=== PATIENT | female | born 2005 | race Caucasian/White ===

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

== ENCOUNTER 2023-09-26 08:00 | Outpatient (CLI) | payer MEDICAID ==
[2023-09-26 16:12] LABS: BILIRUBIN,URINE NEGATIVE (NEGATIVE); GLUCOSE, URINE (UA) NEGATIVE (NEGATIVE); KETONES,URINE (UA) NEGATIVE (NEGATIVE); LEUKOCYTE ESTERASE, URINE NEGATIVE (NEGATIVE); NITRITE,URINE NEGATIVE (NEGATIVE); OCCULT BLOOD,URINE MODERATE (NEGATIVE); PH,URINE 7.5 PH (5.0-7.5); PROTEIN,URINE NEGATIVE (NEGATIVE); UROBILINOGEN,URINE 0.2 (NORMAL) E.U./dL (NORMAL)
[2023-09-26 16:13] LABS: CLARITY,URINE HAZY (CLEAR)
[2023-09-26 16:28] LABS: AMORPHOUS SEDIMENT,UR Few /LPF; BACTERIA,URINE Rare /HPF (None Seen); SQUAMOUS EPITHELIAL CELL,UR MANY Squamous (<= Few); WBC,URINE 0-3 /HPF (0-5)
== END 2023-09-26 23:59 | disposition home or self-care (01) ==
LOC: LAB.WC 08:00
PROVIDERS: ATTEND Nurse Practitioner
DX: R10.2 Pelvic and perineal pain (principal)
CPT/HCPCS: 81001; 87086

== ENCOUNTER 2023-10-14 08:00 | Outpatient (CLI) | payer MEDICAID ==
[2023-10-14 15:55] LABS: BILIRUBIN,URINE NEGATIVE (NEGATIVE); GLUCOSE, URINE (UA) NEGATIVE (NEGATIVE); KETONES,URINE (UA) NEGATIVE (NEGATIVE); LEUKOCYTE ESTERASE, URINE NEGATIVE (NEGATIVE); NITRITE,URINE NEGATIVE (NEGATIVE); OCCULT BLOOD,URINE LARGE (NEGATIVE); PROTEIN,URINE NEGATIVE (NEGATIVE); UROBILINOGEN,URINE 0.2 (NORMAL) E.U./dL (NORMAL)
[2023-10-14 16:04] LABS: BACTERIA,URINE Few /HPF (None Seen); CLARITY,URINE CLEAR (CLEAR); MUCUS,URINE Few Strands; SQUAMOUS EPITHELIAL CELL,UR FEW Squamous (<= Few); WBC,URINE 0-3 /HPF (0-5)
== END 2023-10-14 23:59 | disposition home or self-care (01) ==
LOC: LAB.WC 08:00
PROVIDERS: ATTEND Nurse Practitioner
DX: R30.0 Dysuria (principal)
CPT/HCPCS: 81001; 87086

== ENCOUNTER 2024-02-11 08:00 | Outpatient (CLI) | payer MEDICAID ==
[2024-02-11 16:31] LABS: BILIRUBIN,URINE NEGATIVE (NEGATIVE); GLUCOSE, URINE (UA) NEGATIVE (NEGATIVE); KETONES,URINE (UA) NEGATIVE (NEGATIVE); LEUKOCYTE ESTERASE, URINE SMALL (NEGATIVE); NITRITE,URINE NEGATIVE (NEGATIVE); OCCULT BLOOD,URINE NEGATIVE (NEGATIVE); PROTEIN,URINE NEGATIVE (NEGATIVE); UROBILINOGEN,URINE 0.2 (NORMAL) E.U./dL (NORMAL)
[2024-02-11 16:38] LABS: CLARITY,URINE HAZY (CLEAR)
[2024-02-11 17:01] LABS: BACTERIA,URINE Few /HPF (None Seen); RBC,URINE 0-5 /HPF (0-5); SQUAMOUS EPITHELIAL CELL,UR MOD Squamous (<= Few)
== END 2024-02-11 23:59 | disposition home or self-care (01) ==
LOC: LAB.WC 08:00
PROVIDERS: ATTEND Nurse Practitioner
DX: R30.0 Dysuria (principal)
CPT/HCPCS: 81001; 87086

== ENCOUNTER 2024-02-20 08:00 | Outpatient (CLI) | payer MEDICAID ==
[2024-02-20 16:59] LABS: BILIRUBIN,URINE NEGATIVE (NEGATIVE); GLUCOSE, URINE (UA) NEGATIVE (NEGATIVE); KETONES,URINE (UA) NEGATIVE (NEGATIVE); LEUKOCYTE ESTERASE, URINE NEGATIVE (NEGATIVE); NITRITE,URINE NEGATIVE (NEGATIVE); OCCULT BLOOD,URINE LARGE (NEGATIVE); PROTEIN,URINE NEGATIVE (NEGATIVE); UROBILINOGEN,URINE 0.2 (NORMAL) E.U./dL (NORMAL)
[2024-02-20 17:01] LABS: CLARITY,URINE HAZY (CLEAR)
[2024-02-20 17:16] LABS: BACTERIA,URINE Rare /HPF (None Seen); SQUAMOUS EPITHELIAL CELL,UR FEW Squamous (<= Few); WBC,URINE 0-3 /HPF (0-5)
== END 2024-02-20 23:59 | disposition home or self-care (01) ==
LOC: LAB.WC 08:00
PROVIDERS: ATTEND Nurse Practitioner
DX: R30.0 Dysuria (principal)
CPT/HCPCS: 81001; 87086

== ENCOUNTER 2024-03-08 14:15 | Outpatient (CLI) | payer MEDICAID ==
--- NOTE | 2024-03-08 20:15 | Ultrasound Report ---
PROCEDURE: Pelvic Complete INDICATIONS: PELVIC PAIN, PAINFUL URINARY BLADDER SYNDROME TECHNIQUE: Real-time transabdominal scanning was performed of the pelvic organs, with image documentation. Randolph svaginal examination was not performed. COMPARISON: None FINDINGS: Uterus: Uterus is anteverted and normal in size at 8.7 x 3.6 x 4.6 cm. The myometrium is homogeneou s. The endometrium measures 3 mm in combined thickness. IUD is in appropriate position. Ovaries: The right ovary measures 2.8 x 2.3 x 2.7 cm, with a calculated ovarian volume of 9.26 cc. The left ovary measures 3.4 x 2.1 x 2.1 cm, with a calculated ovarian volume of 7.7 cc. Less than 12 follicles in the right ovary and possibly greater than 12 follicles in the left ovary. No adnexal m asses are seen. No cystic lesions measuring greater than 3 cm. Other: No free pelvic fluid. IMPRESSION: Evaluation is limited on transabdominal view. 1.IUD is in appropriate position. 2.Less than 12 follicles in the right ovary and possibly greater than 12 follicles in the left ovary which may be seen in the setting of PCOS. Recommend clinical correlation. Reviewed by: Gee Romero MD on 03/08/2024 8:14 PM PDT Approved by: Gee Romero MD on 03/08/2024 8:14 PM PDT Station ID: [id number]
== END 2024-03-08 14:16 | disposition home or self-care (01) ==
LOC: DI 14:15
PROVIDERS: ATTEND Nurse Practitioner
DX: R39.89 Other symptoms and signs involving the genitourinary system (principal); R10.2 Pelvic and perineal pain; Z30.431 Encounter for routine checking of intrauterine contraceptive device

== ENCOUNTER 2024-04-09 15:46 | Outpatient (CLI) | payer MEDICAID ==
[2024-04-09] MEDS ORDERED: GADOTERATE MEGLUMINE 7.5 MMOL/15 ML VIAL ONE (16:32)
[2024-04-10] MEDS: GADOTERATE MEGLUMINE 10 MMOL/20 ML VIAL IVP ONE (07:01)
--- NOTE | 2024-04-10 08:57 | MRI Report ---
PROCEDURE: Pelvis W/WO INDICATIONS: MENORRHAGIA CONTRAST: CLARISCAN 11.6 ML TECHNIQUE: Coronal ultra fast SE, sagittal breath-hold T2 FSE; axial T1 FSE with and without fat saturation thro ugh the pelvis. Optional long- and short-axis uterine nonbreath-hold T2 FSE through the uterus. Sag ittal or axial dynamic ultra fast GE during administration of contrast. Post-contrast axial or coron al ultra fast GE / 2-D spoiled GE with fat saturation from the iliac crests to the symphysis. Option al diffusion weighted imaging and ADC may be performed. COMPARISON: Pelvic ultrasound 03/08/2024 FINDINGS: Image quality: Excellent. Uterus: Uterus is anteverted and normal in size. An IUD is situated appropriately in the endometrium . Endometrium is normal in thickness. Junctional zone is normal in thickness at 12 mm or less. Small myometrial round T2 hypointensity in the right fundus. No other myometrial masses. The cervix is nor mal. The vaginal canal is within normal limits. Adnexa: Both ovaries are normal in size, without suspicious cystic or solid lesions. There is a 3.6 cm simple cyst within the right ovary. Both ovaries demonstrate numerous subcentimeter, mainly perip herally based follicles. Urinary system: Bladder wall is normal in thickness. Distal ureters are non distended. Urethra olegario ears normal in morphology. Nodes and vessels: No pelvic or inguinal adenopathy by size criteria. Iliac vessels are normal in s ize. Bowel and peritoneum: No pathologic free pelvic fluid. Inferior colon and small bowel loops are nor mal in caliber. Soft tissues: No inguinal hernias. No findings of pelvic floor incompetence in the absence of provo cation. Bones: Marrow demonstrates normal overall signal. IMPRESSION: Normal size uterus with an appropriately situated IUD. There may be small right fundal myometrial fibroid. Uterine morphology is otherwise normal. Normal size ovaries with numerous subcentimeter follicles bilaterally. This can be physiologic. In th e clinical setting of hyperandrogenism, this may support a diagnosis of PCOS. 3.6 cm right ovarian simple cyst. Reviewed by: Rena Pedro MD on 04/10/2024 8:56 AM PDT Approved by: Rena Pedro MD on 04/10/2024 8:56 AM PDT Station ID: [id number]
== END 2024-04-09 15:47 | disposition home or self-care (01) ==
LOC: DI 15:46
PROVIDERS: ATTEND Nurse Practitioner
DX: N83.291 Other ovarian cyst, right side (principal)